=== PATIENT | female | born 1965 | race Caucasian/White ===

== ENCOUNTER → 2020-06-15 | Outpatient (CLI) | payer OTHER ==
--- NOTE | 2020-06-15 15:30 | RAD ---
EXAM: Right knee, 2 views. HISTORY: Pain. COMPARISON: None. FINDINGS: Lateral and sunrise views of the right knee are obtained. There is lateral patellofemoral c ompartment joint space narrowing with subchondral sclerosis and spurring. There is a trace knee effus ion. IMPRESSION: Mild patellofemoral compartment osteoarthritis of the right knee. Electronically signed by: Angelica Raza MD (06/15/2020 3:28 PM) [facility]
== END ==
LOC: RAD 13:41
PROVIDERS: ATTEND Physician Assistant
DX: M17.11 Unilateral primary osteoarthritis, right knee (principal); M76.891 Other specified enthesopathies of right lower limb, excluding foot; M25.861 Other specified joint disorders, right knee
CPT/HCPCS: 73560